=== PATIENT | female | born 1970 | race Two or more races ===

== ENCOUNTER 2022-10-05 12:23 | Inpatient (IN) | payer OTHER ==
[~2022-10-05] VITALS: Ht 160 cm; Wt 63.0 kg
--- NOTE | 2022-10-05 12:37 | NUR ---
PT NOTED W/ PERMACATH OF RIGHT UPPER CHEST
--- NOTE | 2022-10-05 12:52 | NUR ---
CALLED [facility], WAS TRANSFERRED TO MEDICAL RECORDS AND HELD LINE. EVENTUALLY HOLD ENDED AND VIAL GAUGER SAID RECORDS WAS UNAVAILABLE. LEFT MESSAGE ASKING THEM TO CALL BR[facility] NGUYEN
[2022-10-05] MEDS ORDERED: IV NS 0.9% 1,000 ML BAG IV ONE (13:00)
--- NOTE | 2022-10-05 13:28 | NUR ---
RIGHT HAND #20 ESTABLISHED. IVF INFUSING.
--- NOTE | 2022-10-05 13:34 | NUR ---
PER CICI (MEDICAL RECORDS) OF [facility], NEED TO FAX OVER REQUEST FOR MEDICAL RECORDS OF PT. STATED THAT PT WAS THERE A MONTH AGO AND DID NOT COME BACK TO THEIR FACILITY AFTER HER DIALYSIS.
--- NOTE | 2022-10-05 13:40 | NUR ---
FAXED OVER REQUEST FOR RELEASE OF HEALTH INFO TO [facility] REC[facility]. REQUEST CONFIRMED BY CICI.
[2022-10-05] MEDS ORDERED: VANCOMYCIN 1 GM in IV D5W 250 ML IV ONE (14:00)
[2022-10-05] MEDS ORDERED: LEVOFLOXACIN 750 MG /D5W 150ML 150 ML IV ONE (14:00)
--- NOTE | 2022-10-05 14:02 | NUR ---
TECH AT BEDSIDE FOR EKG
--- NOTE | 2022-10-05 14:11 | NUR ---
PATIENT TAKEN TO CT VIA [facility]
--- NOTE | 2022-10-05 14:32 | NUR ---
ADMITTING LOCATED PT INSURANCE, THEY ARE CONTACTING TO SEE IF PT CAN BE ADMITTED.
--- NOTE | 2022-10-05 14:44 | NUR ---
received medical record facsimile from [facility], placed in pt's chart
[2022-10-05] MEDS ORDERED: BETH10TA4 PO (14:53)
[2022-10-05] MEDS ORDERED: EPOE1VIA6 SQ (14:53)
[2022-10-05] MEDS ORDERED: CHOL100043 PO (14:53)
[2022-10-05] MEDS ORDERED: INSU100V39 SQ (14:53)
[2022-10-05] MEDS ORDERED: FAMO20TA8 PO (14:53)
[2022-10-05] MEDS ORDERED: FOLI0.8T2 PO (14:53)
[2022-10-05] MEDS ORDERED: METF-440 PO (14:53)
[2022-10-05] MEDS ORDERED: DOCU-141 PO (14:53)
[2022-10-05] MEDS ORDERED: DULO60CA45 PO (14:53)
[2022-10-05] MEDS ORDERED: BUPR150T10 PO (14:53)
[2022-10-05] MEDS ORDERED: ATOR10TA PO (14:53)
[2022-10-05] MEDS ORDERED: ACET-868 PO (14:53)
[2022-10-05] MEDS ORDERED: INSU100V7 SQ (14:53)
[2022-10-05] MEDS ORDERED: HYDR-4303 PO (14:53)
[2022-10-05] MEDS ORDERED: GABA-536 PO (14:53)
[2022-10-05] MEDS ORDERED: FURO-144 PO (14:53)
[2022-10-05] MEDS ORDERED: FLUT1BLS IH (14:53)
[2022-10-05] MEDS ORDERED: TRAZ-182 PO (14:54)
[2022-10-05] MEDS ORDERED: SEVE800T8 PO (14:54)
[2022-10-05] MEDS ORDERED: NIFE30TA2 PO (14:54)
[2022-10-05] MEDS ORDERED: OLAN2.5T3 PO (14:54)
[2022-10-05] MEDS ORDERED: REPA1TAB7 PO (14:54)
[2022-10-05 15:33] LABS: BASOPHILS % (AUTO) 0.1 % (0.0-2.0); EOSINOPHILS % (AUTO) 0.3 % (0.0-6.0); HEMATOCRIT 27 % (33-45); HEMOGLOBIN 8.4 g/dL (11.5-14.8); LYMPHOCYTES # (AUTO) 0.4 K/uL (0.8-4.8); MEAN CORPUSCULAR HGB CONC 31 g/dl (31.0-36.0); MEAN CORPUSCULAR VOLUME 85 fL (82-100); MONOCYTES # (AUTO) 0.7 K/uL (0.1-1.30); MONOCYTES % (AUTO) 3.7 % (2.0-12.0); NEUTROPHILS # (AUTO) 17.6 K/uL (1.8-8.9); NEUTROPHILS % (AUTO) 93.9 % (43.0-81.0); PLATELET COUNT (AUTO) 189 K/uL (150-450); RED BLOOD CELL COUNT(AUTO) 3.17 MIL/uL (4.0-5.2); WHITE BLOOD COUNT (AUTO) 18.7 K/uL (4.3-11.0)
--- NOTE | 2022-10-05 15:49 | NUR ---
ADMITTING CALLED - VERBAL AUTHORIZATION TO ADMIT TO OBS
[2022-10-05] MEDS ORDERED: MORPHINE SULFATE INJ 2 MG/ML DISP.SYRIN ONE (16:06)
[2022-10-05 16:08] LABS: ALANINE AMINOTRANSFERASE 20 U/L (12-78); ALKALINE PHOSPHATASE 145 U/L (46-116); ASPARTATE AMINOTRANSFERASE 39 U/L (15-37); BILIRUBIN,DIRECT 0.3 mg/dL (0.0-0.2); BILIRUBIN,TOTAL 0.6 mg/dL (0.2-1.0); CALCIUM, SERUM 6.3 mg/dL (8.5-10.1); CARBON DIOXIDE 16 mmol/L (21-32); CHLORIDE 95 mmol/L (98-107); CREATININE 3.8 mg/dL (0.6-1.3); GLUCOSE 141 mg/dL (74-106); SODIUM SERUM 124 mmol/L (136-145); TOTAL PROTEIN, SERUM 6.6 g/dL (6.4-8.2); UREA NITROGEN, BLOOD 62 mg/dL (7-18)
[2022-10-05 16:11] LABS: ACETAMINOPHEN 0 ug/ml (10-30); ALBUMIN 1.4 g/dL (3.4-5.0); ALCOHOL, BLOOD < 3 mg/dL (0-0); POTASSIUM 2.4 mmol/L (3.5-5.1)
--- NOTE | 2022-10-05 16:12 | NUR ---
POTASSIUM 2.4, ALBUMIN 1.4. DOC MADE AWARE.
[2022-10-05] MEDS ORDERED: MORPHINE SULFATE INJ 2 MG/ML DISP.SYRIN IV ONE (16:30)
[2022-10-05] MEDS ORDERED: ASPIRIN 325 MG TABLET PO ONE (17:00)
[2022-10-05] MEDS ORDERED: POTASSIUM CHLORIDE 10 MEQ/50 ML PREMIXED IVPB FOR PERIPHERAL LINE IV ONE (17:00)
[2022-10-05] MEDS ORDERED: MAGNESIUM HYDROXIDE 30 ML UDC PO PRN (17:30)
[2022-10-05] MEDS ORDERED: DEXTROSE 50%-WATER 50 ML DISP.SYRIN IV PRN (17:30)
[2022-10-05] MEDS ORDERED: ACETAMINOPHEN 325 MG TABLET PO PRN (17:30)
[2022-10-05] MEDS ORDERED: ZOLPIDEM TARTRATE 5 MG TABLET PO PRN (17:30)
[2022-10-05] MEDS ORDERED: ONDANSETRON HCL/PF 4 MG/2 ML VIAL IVP PRN (17:30)
[2022-10-05] MEDS ORDERED: Z GUARD REMEDY 4 OZ OINT TP PRN (17:30)
[2022-10-05] MEDS ORDERED: MAG HYDROX/AL HYDROX/SIMETH 30 ML UDC PO PRN (17:30)
[2022-10-05] MEDS ORDERED: POTASSIUM CL. PREMIX PERIPHER. 50 ML ONE (17:54)
[2022-10-05] MEDS ORDERED: ASPIRIN 325 MG TABLET ONE (17:54)
[2022-10-05] MEDS: SEVELAMER CARBONATE 800 MG TABLET PO SCH (18:00)
--- NOTE | 2022-10-05 18:40 | NUR ---
COVID SWAB COLLECTED AND SENT TO LAB
--- NOTE | 2022-10-05 18:50 | NUR ---
ROOM 327-1, FOR STORE CONSULTANT PER HOUSE SUP
[2022-10-05] MEDS: PANTOPRAZOLE 40 MG VIAL IV SCH (19:00)
--- NOTE | 2022-10-05 19:00 | NUR ---
owens cath inserted as indicated
--- NOTE | 2022-10-05 19:08 | NUR ---
URINE SAMPLE COLLECTED AND SENT TO LAB
[2022-10-05] MEDS ORDERED: MORPHINE SULFATE INJ 4 MG/ML DISP.SYRIN ONE (19:09)
[2022-10-05] MEDS ORDERED: PANTOPRAZOLE 40 MG VIAL ONE (19:09)
[2022-10-05] MEDS: MORPHINE SULFATE INJ 2 MG/ML DISP.SYRIN IV PRN ×2 (19:10→23:34)
[2022-10-05 19:54] LABS: BILIRUBIN,URINE NEGATIVE (NEGATIVE); COLOR,URINE YELLOW (YELLOW); LEUKOCYTE ESTERASE ,URINE NEGATIVE (NEGATIVE); NITRITE, URINE NEGATIVE (NEGATIVE); PROTEIN,URINE 3+ mg/dl (NEGATIVE); UGLUCOSE 2+ mg/dL (NEGATIVE); UROBILINOGEN,URINE 0.2 EU/dL (0.2)
--- NOTE | 2022-10-05 20:13 | NUR ---
REPORT GIVEN TO ARCADIO RN
[2022-10-05 20:24] LABS: BACTERIA,URINE Many /HPF (None Seen); SQUAMOUS EPITHELIAL CELL,UR Few /HPF (None Seen); WBC,URINE 0-2 /HPF (0-3)
[2022-10-05 20:40] VITALS: BP 134/59
--- NOTE | 2022-10-05 20:50 | NUR ---
TRANSFERRED TO ROOM
[2022-10-05] MEDS ORDERED: PIPERACILLIN /TAZOBACTAM 2.25 G in IV D5W 50 ML IV SCH (21:00)
--- NOTE | 2022-10-05 21:00 | NUR ---
CNC LATHE MACHINISTTARGET PROTECTION SPECIALIST NOTES - RECEIVED PATIENT FROM ED VIA [facility] AT 2030 UNDER THE CARE OF BRADFORD WE[facility] NP WITH DX OF SEPSIS. HISTORY IS LIMITED D/T PATIENT'S CONDITION. PATIENT A/O X0, MAKES INCOMPREHENSIBLE SOUNDS, RESTLESS AND CRYING. BREATHING IS EVEN AND NON-LABORED ON ROOM AIR. IN MILD DISTRESS. USED GARCIA-SALGUERO AND FLACC PAIN SCALE 9/10. PATIENT HAS LEFT LOWER EXTREMITY EXTERNAL FIXATOR. HAS RIGHT HAND IV ACCESS #20G AND SALINE LOCKED. NO S/S OF INFILTRATION NOTED. HAS RIGHT CHEST WALL PERMA CATH, DRESSING INTACT. HAS INDWELLING BARON CATHETER DRAINING CLEAR GLENN URINE TO BAG BY GRAVITY. VS TAKEN AND PHYSICAL ASSESSMENT DONE. ALL BELONGINGS ACCOUNTED FOR. ORIENTED PATIENT TO UNIT AND STAFF. SAFETY PRECAUTIONS IN PLACE: BED LOCKED AND IN LOW POSITION, SIDE RAILS UP X3, CALL LIGHT WITHIN REACH. WILL CONTINUE POC.
[2022-10-05] MEDS: MEROPENEM 500 MG in IV NS 0.9% 50 ML IV SCH (21:39)
[2022-10-05] MEDS: OLANZAPINE 2.5 MG TABLET PO SCH (21:53)
[2022-10-05] MEDS: ATORVASTATIN 10 MG TABLET PO SCH (21:54)
[2022-10-05] MEDS: buPROPion SR 150 MG TABLET.ER PO SCH (21:54)
[2022-10-05] MEDS: TRAZODONE 50 MG TABLET PO SCH (21:54)
[2022-10-05] MEDS: HEPARIN SODIUM, PORCINE 5000 UNITS/1 ML VIAL SQ SCH (21:58)
[2022-10-05] MEDS: INSULIN GLARGINE, 100 UNIT/ML CARTRIDGE SQ SCH (22:00)
[2022-10-05] MEDS: BLOOD SUGAR DIAGNOSTIC 1 EACH STRIP IN SCH (22:21)
[2022-10-05] MEDS: INSULIN REGULAR, HUMAN 100 UNIT/ML 3 ML VIAL SQ PRN (22:22)
--- NOTE | 2022-10-05 23:35 | NUR ---
PATIENT KEPT CRYING AND MOANING WITH FACIAL GRIMACE. ADMINISTERED PRN MORPHINE 4MG, TOLERATED WELL. WILL CONTINUE PAIN MGT.
--- NOTE | 2022-10-05 23:48 | NUR ---
RECEIVED CALL FROM LAB, TROPONIN 130. AWARE WITH NNO.
[2022-10-06] VITALS (10 sets, daily range): BP systolic 106–149; BP diastolic 50–63
--- NOTE | 2022-10-06 05:35 | NUR ---
NOTIFIED TRELL BAH D.O. THAT PATIENT NEEDS CONSENT FOR HD SINCE SHE IS AMS AND NO EMERGENCY CONTACT LISTED. ORDERED TO HAVE THE CONSENT SIGNED BY GAMAL BRENNAN. WILL ENDORSE TO GAMAL LEDESMA.
[2022-10-06] MEDS: BLOOD SUGAR DIAGNOSTIC 1 EACH STRIP IN SCH ×4 (06:33→21:56)
[2022-10-06] MEDS: INSULIN REGULAR, HUMAN 100 UNIT/ML 3 ML VIAL SQ PRN (06:33)
--- NOTE | 2022-10-06 06:49 | NUR ---
PICKLE SORTER CLOSING NOTES - PATIENT IN BED ASLEEP, EASY TO AROUSE. A/O X1. NO ACUTE EVENTS THROUGHOUT THE NIGHT. SATURATING AT 97% ON ROOM AIR. NO SOB OR NOTED. AFEBRILE. NO S/S OF PAIN NOTED AT THIS TIME. ON TELE MONITOR READING SINUS TACHYCARDIA AT 103 BPM. RIGHT HAND IV ACCESS #20G INTACT, PATENT AND FLUSHING. PERINEAL CARE RENDERED. OUTPUT OF CLEAR GLENN URINE NOTED. PERMA CATH DRESSING CHANGED. HD OUTPUT OF 2L. ALL DUE MEDS GIVEN AND NEEDS ATTENDED. SAFETY PRECAUTIONS MAINTAINED. WILL ENDORSE TO NEXT SHIFT FOR ANIKA.
--- NOTE | 2022-10-06 07:03 | NUR ---
DR. STEVE SIGNED THE HD CONSENT.
--- NOTE | 2022-10-06 07:52 | NUR ---
PROGRAM ANALYST OPENING NOTE Patient in bed, asleep. A/O x 1, per retail shift leader report. On room air, breathing evenly and unlabored. No SOB or s/s of distress noted. IV access on Right hand #20 SL, intact and patent. Leyva catheter in place draining to a yellow colored urine. External fixator on Left foot noted. Safety precautions in place: bed in low, locked position; siderails up x 2; call light within reach. Will continue to monitor.
[2022-10-06] MEDS: SEVELAMER CARBONATE 800 MG TABLET PO SCH ×4 (08:00→17:16)
[2022-10-06] MEDS: HEPARIN SODIUM, PORCINE 5000 UNITS/1 ML VIAL SQ SCH ×3 (09:00→21:00)
[2022-10-06] MEDS: DOCUSATE SODIUM 100 MG CAPSULE PO SCH ×3 (09:00→17:00)
[2022-10-06] MEDS: buPROPion SR 150 MG TABLET.ER PO SCH ×4 (09:00→23:10)
--- NOTE | 2022-10-06 09:00 | NUR ---
RN NOTES REFUSED ALL PO MEDICATIONS.
--- NOTE | 2022-10-06 09:00 | NUR ---
RN NOTES HEPARIN SCHEDULE FOR 0900 HELD, HEMOGLOBIN 6.9 AND HEMATOCRIT 21, RECEIVED REPORT FROM OSWALDO FROM LABS, BRADFORD WE[facility] PANTOGRAPH TRANSFERRER NOTIFIED
[2022-10-06] MEDS: ASPIRIN EC 81 MG TABLET.DR PO SCH (09:06)
[2022-10-06] MEDS: NIFEdipine XL (30MG) 30 MG TAB PO SCH (09:07)
[2022-10-06] MEDS: PANTOPRAZOLE 40 MG VIAL IV SCH (09:08)
[2022-10-06] MEDS: MEROPENEM 500 MG in IV NS 0.9% 50 ML IV SCH ×2 (09:08→21:51)
[2022-10-06] MEDS: DULOXETINE HCL 30 MG CAPSULE.DR PO SCH (09:08)
[2022-10-06 09:10] LABS: BASOPHILS % (AUTO) 0.1 % (0.0-2.0); HEMATOCRIT 21 % (33-45); LYMPHOCYTES # (AUTO) 0.4 K/uL (0.8-4.8); MEAN CORPUSCULAR HGB CONC 32 g/dl (31.0-36.0); MEAN CORPUSCULAR VOLUME 81 fL (82-100); MONOCYTES # (AUTO) 0.9 K/uL (0.1-1.30); MONOCYTES % (AUTO) 4.7 % (2.0-12.0); NEUTROPHILS # (AUTO) 17.2 K/uL (1.8-8.9); NEUTROPHILS % (AUTO) 93.2 % (43.0-81.0); PLATELET COUNT (AUTO) 149 K/uL (150-450); RED BLOOD CELL COUNT(AUTO) 2.62 MIL/uL (4.0-5.2); WHITE BLOOD COUNT (AUTO) 18.4 K/uL (4.3-11.0)
[2022-10-06 09:13] LABS: HEMOGLOBIN 6.9 g/dL (11.5-14.8)
--- NOTE | 2022-10-06 09:41 | NUR ---
WOUND CARE CONSULT: PT PRESENTS WITH MULTIPLE SKIN ISSUES, PRESENT ON ADMISSION INCLUDING MULTIPLE DRY SCABS/ABRASIONS TO RT LOWER EXTREMITY, RT THIGH DRY SCAB/BLISTER, AND SACRAL DEEP TISSUE INJURY IN EVOLUTION. RECOMMENDATIONS MADE FOR SKIN PROTECTION. DISCUSSED WITH NURSING STAFF. DR LEDEZMA AND DR GARCIAS CALLED FOR DPM AND SURGICAL CONSULTS. MD IN AGREEMENT WITH PLAN OF CARE. Addendum: 10/06/22 at 0947 by CARMEN MATIAS WNDNU Amended: Links added.
[2022-10-06 10:28] LABS: BILIRUBIN,DIRECT 0.3 mg/dL (0.0-0.2); BILIRUBIN,TOTAL 0.7 mg/dL (0.2-1.0); CALCIUM, SERUM 7.9 mg/dL (8.5-10.1); CREATININE 2.6 mg/dL (0.6-1.3); MAGNESIUM 1.4 mg/dL (1.8-2.4); PHOSPHORUS 3.2 mg/dL (2.5-4.9)
[2022-10-06 10:31] LABS: POTASSIUM 2.7 mmol/L (3.5-5.1)
--- NOTE | 2022-10-06 10:31 | NUR ---
RN NOTES RECEIVED CALL FROM OSWALDO FROM LAB, POTASSIUM IS 2.7 AND ALBUMIN IS 1.2 [facility] MARKETING SPECIALIST NOTIFIED NO NEW ORDERS TO REPLACE AT THIS TIME, REPEAT LABS JESSE AM.
[2022-10-06 10:32] LABS: ALBUMIN 1.2 g/dL (3.4-5.0)
[2022-10-06 11:22] LABS: THYROID STIMULATING HORMONE 2.15 uIU/mL (0.358-3.74)
[2022-10-06] MEDS: VANCOMYCIN 500 MG in IV D5W 100 ML IV PRN (13:28)
[2022-10-06] MEDS ORDERED: ACETAMINOPHEN 650 MG/SUPP.RECT RC PRN (14:00)
--- NOTE | 2022-10-06 14:39 | NUR ---
RN NOTES PATIENT TEMP AT 1339 IS 100.2 LOUISA WEST LORRY WEIGHER NOTIFIED AND ORDERED TYLENOL 650MG SUPP. TYLENOL PRN GIVEN TEMP RECHECKED, 99.7. VERIFIED WITH SARAHY CHARGE NURSE YVONNE TO START BLOOD TRANSFUSION. WILL CONTINUE TO MONITOR.
--- NOTE | 2022-10-06 15:01 | NUR ---
RN NOTES RECEIVED ORDERS FOR BLOOD TRANSFUSION PATIENT HEMOGLOBIN IS 6.9. VITAL SIGNS TAKEN FOLLOWS BP: 133/58, OK:91, O2 SAT: 96, RR:20, TEMP:99.7. BLOOD CRAP SHOOTER FROM BLOOD BANK, VERIFIED BY TWO RN BLOOD TRANSFUSION STARTED
--- NOTE | 2022-10-06 15:16 | NUR ---
RN NOTES PATIENT REMAIN STABLE, NO SIGNS OF TRANSFUSION REACTION NOTED VITAL SIGNS FOLLOW BP:120/50, MA: 91, RR:20, O2 SAT:96, TEMP:99. WILL CONTINUE TO MONITOR.
--- NOTE | 2022-10-06 16:16 | NUR ---
RN NOTES PATIENT REMAIN STABLE NO SIGNS OF BLOOD TRANSFUSION REACTION WITH VITAL SIGNS BP:133/59, LA:95, RR:20, O2 SAT:97, TEMP, 98.3. WILL CONTINUE TO MONITOR
[2022-10-06 16:56] LABS: BAND % (MANUAL) 3 % (0.0-5.0); NEUTROPHILS % (MANUAL) 91 (42-76)
[2022-10-06 16:57] LABS: LYMPHOCYTES % (MANUAL) 2 % (16-48); MONOCYTES % (MANUAL) 4 % (0-11.0)
--- NOTE | 2022-10-06 17:55 | NUR ---
RN NOTES BLOOD TRANSFUSION ENDED, NO BLOOD REACTIONS NOTED WITH VITAL SIGNS OF BP:122/55, NE:87, RR:20, O2 SAT:98, TEMP:98.5. WILL CONTINUE TO MONITOR.
[2022-10-06] MEDS: MUPIROCIN OINT 2% 22 GM TUBE TP SCH (17:58)
--- NOTE | 2022-10-06 18:55 | NUR ---
SENIOR RESEARCH ENGINEER CLOSING NOTES PATIENT AT BED ASLEEP, AROUSABLE TO LIGHT PAIN, ON ROOM AIR. BREATHING EVENLLY AND UNLABORED NO SOB OR SIGNS OF DISTRESS NOTED. IV ACCESS ON R HAND #20G SL INTACT AND PATENT. BARON CATHETER IN PLACED. DRAINING TO A YELLOW COLORED URINE WITH AN OUTPUT OF 150CC. EXTERNAL FIXATION DEVICE NOTED ON LLE ON TELE MONITORING SHOWING SR HR 86. TURN AND REPOSITION TOLERATED. PATIENT KEPT CLEAN AND DRY. PATIENT REFUSING ALL PO MEDS, BRADFORD WEST ASSISTANT MANAGER TRAINEE AWARE SAFETY PRECAUTIONS MAINTAINED. WILL ENDORSED TO MANAGER CRITICAL CARE FOT ANIKA.
--- NOTE | 2022-10-06 19:50 | NUR ---
ACCOUNTING TEACHER OPENING NOTE Received patient in bed, awake. Pt A/O x 1, unable to verbalize needs. On room air, breathing evenly and unlabored. No SOB or s/s of respiratory distress noted. IV access to Right hand #20 SL, intact and patent. Leyva catheter in place draining clear yellow urine. External fixator on Left foot noted. Safety precautions in place: bed in low, and locked position; side rails up x 2; call light within reach. Will continue to monitor pt.
[2022-10-06] MEDS: TRAZODONE 50 MG TABLET PO SCH ×2 (21:52→23:11)
[2022-10-06] MEDS: ATORVASTATIN 10 MG TABLET PO SCH ×2 (21:53→23:11)
[2022-10-06] MEDS: OLANZAPINE 2.5 MG TABLET PO SCH ×2 (21:53→23:11)
[2022-10-06] MEDS: INSULIN GLARGINE, 100 UNIT/ML CARTRIDGE SQ SCH (22:54)
[2022-10-07] VITALS: BP 133/68
[2022-10-07 04:00] VITALS: BP 156/78
[2022-10-07] MEDS: MUPIROCIN OINT 2% 22 GM TUBE TP SCH ×2 (05:00→17:20)
[2022-10-07] MEDS: BLOOD SUGAR DIAGNOSTIC 1 EACH STRIP IN SCH ×4 (06:52→21:46)
[2022-10-07] MEDS: INSULIN REGULAR, HUMAN 100 UNIT/ML 3 ML VIAL SQ PRN ×3 (06:54→21:48)
--- NOTE | 2022-10-07 06:55 | NUR ---
SALES CLOSER CLOSING NOTE LEFT PT SLEEPING IN BED. NO S/S OF PAIN SEEN AT THIS TIME. ALL NEEDS ATTENDED. PT REFUSED ALL HS MEDS EXCEPT FOR MERREM IVPB. NO S/S OF RESPIRATORY DISTRESS. ALL SAFETY MEASURES IN PLACE. WILL ENDORSE TO AM SHIFT NURSE FOR ANIKA.
--- NOTE | 2022-10-07 07:20 | NUR ---
BENCH JEWELER OPENING NOTES RECEIVED PATIENT ASLEEP IN BED BUT EASY TO WAKE UP BY CALLING NAME AND BY LIGHT TOUCH. NO S/S OF PAIN SEEN AT THIS TIME. NO S/S OF RESPIRATORY DISTRESS. PATIENT ON BARON CATH. WITH RIGHT LEG/THIGH SCABS AND LEFT FOOT EXTREMITY FIXATOR. SAFETY MEASURES GIVEN WITH BED ON LOW POSITION AND LOCKED. SIDE RAILS UP X 2. CALL LIGHT WITHIN REACH. WILL CONTINUE WITH THE PLAN OF CARE.
[2022-10-07 08:20] VITALS: BP_SYST 156; BP_SYST 94; BP_DIAS 58; BP_DIAS 75
[2022-10-07 08:48] LABS: EOSINOPHILS % (AUTO) 0.1 % (0.0-6.0); HEMATOCRIT 25 % (33-45); HEMOGLOBIN 8.1 g/dL (11.5-14.8); LYMPHOCYTES # (AUTO) 0.6 K/uL (0.8-4.8); LYMPHOCYTES % (AUTO) 3.5 % (20.0-44.0); MEAN CORPUSCULAR HGB CONC 32 g/dl (31.0-36.0); MEAN CORPUSCULAR VOLUME 82 fL (82-100); MONOCYTES # (AUTO) 1.4 K/uL (0.1-1.30); MONOCYTES % (AUTO) 7.6 % (2.0-12.0); NEUTROPHILS # (AUTO) 16.4 K/uL (1.8-8.9); NEUTROPHILS % (AUTO) 88.8 % (43.0-81.0); PLATELET COUNT (AUTO) 149 K/uL (150-450); RED BLOOD CELL COUNT(AUTO) 3.04 MIL/uL (4.0-5.2); WHITE BLOOD COUNT (AUTO) 18.4 K/uL (4.3-11.0)
[2022-10-07] MEDS: NIFEdipine XL (30MG) 30 MG TAB PO SCH (09:00)
--- NOTE | 2022-10-07 09:00 | NUR ---
RN NOTE HELD BLOOD PRESSURE MEDS FOR PATIENT IS ON HEMODIALYSIS.
[2022-10-07] MEDS: ASPIRIN EC 81 MG TABLET.DR PO SCH (09:12)
[2022-10-07] MEDS: DOCUSATE SODIUM 100 MG CAPSULE PO SCH ×2 (09:12→17:08)
[2022-10-07] MEDS: DULOXETINE HCL 30 MG CAPSULE.DR PO SCH (09:12)
[2022-10-07] MEDS: SEVELAMER CARBONATE 800 MG TABLET PO SCH ×3 (09:13→17:08)
[2022-10-07] MEDS: PANTOPRAZOLE 40 MG VIAL IV SCH (09:13)
[2022-10-07 09:52] LABS: CALCIUM, SERUM 7.4 mg/dL (8.5-10.1); CREATININE 3.3 mg/dL (0.6-1.3); MAGNESIUM 1.5 mg/dL (1.8-2.4); PHOSPHORUS 4.1 mg/dL (2.5-4.9)
[2022-10-07 10:07] LABS: POTASSIUM 2.8 mmol/L (3.5-5.1)
[2022-10-07] MEDS: MEROPENEM 500 MG in IV NS 0.9% 50 ML IV SCH ×2 (10:38→21:15)
--- NOTE | 2022-10-07 10:44 | NUR ---
SS consult requested for unknown support system. ADRIEN called [facility][ [id number] [place] [address] ] where pt. resides . ADRIEN left ADRIEN a voicemail with call back number requesting responsible republican's contact information.
[2022-10-07] MEDS: VANCOMYCIN 500 MG in IV D5W 100 ML IV PRN (12:57)
[2022-10-07 13:03] VITALS: BP 144/76
[2022-10-07] MEDS: HEPARIN SODIUM, PORCINE 5000 UNITS/1 ML VIAL SQ SCH ×2 (13:14→21:59)
[2022-10-07] MEDS ORDERED: LEVOFLOXACIN 500 MG /D5W 100ML 500 MG in PREMIX 1 EA IV SCH (15:00)
[2022-10-07 16:01] VITALS: BP 156/76
[2022-10-07] MEDS ORDERED: NEPRO VAN 237 ML CAN PO PRN (16:30)
[2022-10-07] MEDS ORDERED: Magnesium 1GM/D5W 100ML PREMIX 100 ML IV SCH (18:30)
[2022-10-07] MEDS ORDERED: Magnesium 1GM/D5W 100ML PREMIX PIGGYBACK IV ONE (18:30)
--- NOTE | 2022-10-07 18:50 | NUR ---
NUTRITION INSTRUCTOR CLOSING NOTE PATIENT ASLEEP IN BED BUT EASY TO WAKE UP BY CALLING NAME AND BY LIGHT TOUCH. NO S/S OF PAIN SEEN AT THIS TIME. NO S/S OF RESPIRATORY DISTRESS. PATIENT ON BARON CATH. ON TELE MONITOR WITH SINUS RHYTHM OF 85. MAGNESIUM SULFATE DEXTROSE RUNNING @ 100ML/HR ON RIGHT HAND #20, INFUSING WELL. PATIENT HAVE RIGHT LEG/THIGH SCABS AND LEFT FOOT EXTREMITY FIXATOR. SAFETY MEASURES GIVEN WITH BED ON LOW POSITION AND LOCKED. SIDE RAILS UP X 2. CALL LIGHT WITHIN REACH. WILL ENDORSE TO THE NEXT SHIFT FOR CONTINUITY OF CARE.
[2022-10-07 20:00] VITALS: BP 153/74
[2022-10-07] MEDS: POTASSIUM CL. PREMIX PERIPHER. 50 ML IV SCH ×2 (20:35→21:45)
[2022-10-07] MEDS: buPROPion SR 150 MG TABLET.ER PO SCH (21:16)
[2022-10-07] MEDS: INSULIN GLARGINE, 100 UNIT/ML CARTRIDGE SQ SCH (21:50)
[2022-10-08] VITALS: BP 146/69
[2022-10-08 04:00] VITALS: BP 152/72
[2022-10-08] MEDS: MUPIROCIN OINT 2% 22 GM TUBE TP SCH ×2 (05:44→16:57)
[2022-10-08] MEDS: BLOOD SUGAR DIAGNOSTIC 1 EACH STRIP IN SCH ×3 (06:06→16:57)
[2022-10-08] MEDS: INSULIN REGULAR, HUMAN 100 UNIT/ML 3 ML VIAL SQ PRN ×2 (06:09→12:34)
--- NOTE | 2022-10-08 06:44 | NUR ---
NUT BLANKER OPERATOR CLOSING NOTE LEFT PATIENT ASLEEP IN BED BUT EASY TO AROUSE. NO S/S OF PAIN SEEN AT THIS TIME. NO S/S OF RESPIRATORY DISTRESS. PATIENT ON BARON CATH, DRAINING DARK YELLOW URINE, 100 ML OF URINE DRAINED. ON TELE MONITOR WITH SINUS RHYTHM, HR 93. POTASSIUM REPLACED DURING SHIFT D/T K: 2.8. PATIENT HAVE RIGHT LEG/THIGH SCABS AND LEFT FOOT EXTERNAL FIXATOR. SAFETY MEASURES IN PLACE: BED ON LOW POSITION AND LOCKED. SIDE RAILS UP X 2. CALL LIGHT WITHIN REACH. WILL ENDORSE TO THE NEXT SHIFT NURSE FOR CONTINUITY OF CARE.
--- NOTE | 2022-10-08 07:00 | NUR ---
BULK SEALER OPERATOR OPENING NOTES PATIENT LAYING IN BED, A/O X 1, TOLERATING WELL ON ROOM AIR WITH NO S/S RESPIRATORY DISTRESS. NO COMPLAINTS OF PAIN OR DISCOMFORT AT THIS TIME. BARON CATHETER IN PLACE DRAINING CLEAR YELLOW URINE TO GRAVITY. TELE MONITOR IN PLACE READING NSR 90. LEFT LEG EXTERNAL FIXATOR IN PLACE. SAFETY MEASURES IN PLACE: BED IN LOWEST LOCKED POSITION, SIDE RAILS UP X 2, CALL LIGHT WITHIN REACH. WILL CONTINUE TO MONITOR.
[2022-10-08 07:56] LABS: BASOPHILS % (AUTO) 0.1 % (0.0-2.0); HEMATOCRIT 26 % (33-45); HEMOGLOBIN 8.3 g/dL (11.5-14.8); LYMPHOCYTES # (AUTO) 1.1 K/uL (0.8-4.8); LYMPHOCYTES % (AUTO) 4.7 % (20.0-44.0); MEAN CORPUSCULAR HGB CONC 32 g/dl (31.0-36.0); MEAN CORPUSCULAR VOLUME 83 fL (82-100); MONOCYTES # (AUTO) 1.4 K/uL (0.1-1.30); MONOCYTES % (AUTO) 6.3 % (2.0-12.0); NEUTROPHILS # (AUTO) 19.8 K/uL (1.8-8.9); NEUTROPHILS % (AUTO) 88.9 % (43.0-81.0); PLATELET COUNT (AUTO) 172 K/uL (150-450); RED BLOOD CELL COUNT(AUTO) 3.16 MIL/uL (4.0-5.2); WHITE BLOOD COUNT (AUTO) 22.2 K/uL (4.3-11.0)
[2022-10-08 08:45] LABS: CALCIUM, SERUM 8.2 mg/dL (8.5-10.1); MAGNESIUM 2.2 mg/dL (1.8-2.4); PHOSPHORUS 2.6 mg/dL (2.5-4.9); POTASSIUM 3.6 mmol/L (3.5-5.1)
[2022-10-08] MEDS: SEVELAMER CARBONATE 800 MG TABLET PO SCH ×3 (09:02→17:26)
[2022-10-08] MEDS: DULOXETINE HCL 30 MG CAPSULE.DR PO SCH (09:02)
[2022-10-08] MEDS: ASPIRIN EC 81 MG TABLET.DR PO SCH (09:03)
[2022-10-08] MEDS: NIFEdipine XL (30MG) 30 MG TAB PO SCH (09:03)
[2022-10-08] MEDS: PANTOPRAZOLE 40 MG VIAL IV SCH (09:03)
[2022-10-08] MEDS: buPROPion SR 150 MG TABLET.ER PO SCH (09:03)
[2022-10-08 09:05] VITALS: BP 152/76
[2022-10-08] MEDS: HEPARIN SODIUM, PORCINE 5000 UNITS/1 ML VIAL SQ SCH (09:05)
[2022-10-08] MEDS: DOCUSATE SODIUM 100 MG CAPSULE PO SCH ×2 (09:09→16:57)
[2022-10-08] MEDS: MEROPENEM 500 MG in IV NS 0.9% 50 ML IV SCH (09:23)
[2022-10-08 11:58] VITALS: BP 142/68
--- NOTE | 2022-10-08 12:00 | NUR ---
STATE SUPERINTENDENT OF SCHOOLS NOTES PATIENT NOTED WITH FEVER 100.3 F, PRN TYLENOL 650 MG PO PRN ADMINISTERED ORDERED. WILL CONTINUE TO MONITOR S/S FEVER.
[2022-10-08] MEDS ORDERED: ALBUMIN 25% 25 GM in PREMIX 1 EA IV PRN (14:30)
[2022-10-08 16:21] VITALS: BP 96/56
--- NOTE | 2022-10-08 16:30 | NUR ---
CONTRACT PARALEGALDOUBLING MACHINE OPERATOR NOTES DISCHARGE ORDERS RECEIVED FROM MD. PATIENT UNABLE TO SIGN DISCHARGE PAPERWORK, CO-SIGN OBTAINED BY RN. PHOTOS TAKEN AND PLACED IN CHART. RECEIVING FACILITY CALLED ([facility]) AND FULL REPORT GIVEN TO RN DIMAS. ALL DISCHARGE PAPERWORK PROVIDED TO TRANSPORT. SALINE LOCK LEFT IN PLACE PER RECEIVING RN REQUEST. PATIENT TRANSFERRED FROM UNIT VIA GURNEY ACCOMPANIED BY 2 PRODUCTION LINE TECHNICIAN. PATIENT STABLE AT TIME OF DISCHARGE.
--- NOTE | 2022-10-09 01:02 | NUR ---
CRITICAL: POSITIVE GRAM COCCI STREP CULTURE FROM 10/06/22
== END 2022-10-08 18:11 | disposition short-term general hospital (02) | DRG 349 ==
LOC: EDBD 12:27 → ER 12:27 → TRANSITION 17:04 → TELE 18:59
PROVIDERS: ADMIT Nurse Practitioner Acute Care; ATTEND Nurse Practitioner Acute Care
PROC: 5A1D70Z Performance of Urinary Filtration, Intermittent, Less than 6 Hours Per Day (ICD-10-PCS; principal; 2022-10-06)
PROC: 30233N1 Transfusion of Nonautologous Red Blood Cells into Peripheral Vein, Percutaneous Approach (ICD-10-PCS; 2022-10-06)
DX: T84.623A Infection and inflammatory reaction due to internal fixation device of left tibia, initial encounter (principal); A41.89 Other specified sepsis; G92.8 Other toxic encephalopathy; E87.20 Acidosis, unspecified; I21.A1 Myocardial infarction type 2; I13.2 Hypertensive heart and chronic kidney disease with heart failure and with stage 5 chronic kidney disease, or end stage renal disease; E87.1 Hypo-osmolality and hyponatremia; D63.8 Anemia in other chronic diseases classified elsewhere; L89.156 Pressure-induced deep tissue damage of sacral region; N18.6 End stage renal disease; E11.22 Type 2 diabetes mellitus with diabetic chronic kidney disease; R65.20 Severe sepsis without septic shock; Z20.822 Contact with and (suspected) exposure to COVID-19; E11.42 Type 2 diabetes mellitus with diabetic polyneuropathy; I50.9 Heart failure, unspecified; L97.529 Non-pressure chronic ulcer of other part of left foot with unspecified severity; E11.621 Type 2 diabetes mellitus with foot ulcer; E11.69 Type 2 diabetes mellitus with other specified complication; Z79.84 Long term (current) use of oral hypoglycemic drugs; Z79.4 Long term (current) use of insulin; Z79.899 Other long term (current) drug therapy; Z79.51 Long term (current) use of inhaled steroids; Z91.15 Patient's noncompliance with renal dialysis; Z91.199 Patient's noncompliance with other medical treatment and regimen due to unspecified reason; Z99.2 Dependence on renal dialysis; E78.5 Hyperlipidemia, unspecified; E87.8 Other disorders of electrolyte and fluid balance, not elsewhere classified; E87.6 Hypokalemia; J44.9 Chronic obstructive pulmonary disease, unspecified; D50.9 Iron deficiency anemia, unspecified; Z88.0 Allergy status to penicillin; L03.116 Cellulitis of left lower limb; M89.8X9 Other specified disorders of bone, unspecified site; N39.0 Urinary tract infection, site not specified; Y83.8 Other surgical procedures as the cause of abnormal reaction of the patient, or of later complication, without mention of misadventure at the time of the procedure; Y92.89 Other specified places as the place of occurrence of the external cause; Z79.82 Long term (current) use of aspirin; Z87.891 Personal history of nicotine dependence; Z86.59 Personal history of other mental and behavioral disorders; M86.662 Other chronic osteomyelitis, left tibia and fibula; F15.11 Other stimulant abuse, in remission; S82.452A Displaced comminuted fracture of shaft of left fibula, initial encounter for closed fracture; X58.XXXA Exposure to other specified factors, initial encounter; Y92.9 Unspecified place or not applicable; T84.625A Infection and inflammatory reaction due to internal fixation device of left fibula, initial encounter
CPT/HCPCS: 36415; 70450-TC; 71045-TC; 73590-TC; 73700-TC; 80048-TC; 80061-TC; 80076-TC; 80202-TC; 81001; 82140-TC; 82962-TC; 83540-TC; 83605-TC; 83690-TC; 83735-TC; 84100-TC; 84443-TC; 84484-TC; 85025-TC; 86706; 86850-TC; 87040-TC; 87081-TC; 87086-TC; 87340; 90935-TC; 92526; 92611-TC; 93307-TC; A4216; C9113; G0378; G0480; J1644; J1815; J1956; J2185; J2270; J2543; J3370; J3475; J3480; J7030; J7050; J7060; P9016; P9047